=== PATIENT | male | born 1995 | race Caucasian/White ===

== ENCOUNTER 2016-12-14 13:19 | Inpatient (IN) | payer OTHER ==
[~2016-12-14] VITALS: Ht 167.6 cm; Wt 63.5 kg
[2016-12-14] VITALS (8 sets, daily range): BP systolic 107–134; BP diastolic 61–88; PULSE 80–121; RESP 16–20; TEMP 97.8–99.1; O2SAT 99–100
--- NOTE | 2016-12-14 13:19 | NUR ---
Patient to ER bed 3 to gown for evaluation. Side rails up. Report given to LILI JURADO.
--- NOTE | 2016-12-14 13:20 | NUR ---
DR. RODGERS AT BEDSIDE EXAMINING THE PT.
--- NOTE | 2016-12-14 13:22 | NUR ---
PT. PRESENTED WITH AN IV LINE TO LEFT HAND, NO INFILTRATION NOTED AT SITE
--- NOTE | 2016-12-14 13:25 | NUR ---
PT. TO THE ER BROUGHT IN BY EMS FROM [facility] STATING THAT PT. IS BED BOUND YET WAS WITNESSED ON THE GROUND HAVING A SEIZURE, WAS WITNESSED BY STAFF, SEIZURE TIME UNKNOWN, HX OF CVA, ENCEPHALOPATHY, BASE LINE ALTERED MENTAL LEVEL, TACHYCARDIAC, MARION IN PLACE, G TUBE AND VENT IN PLACE, NON AGITATED AWAKE AND ALERT AT THIS TIME
[2016-12-14] MEDS ORDERED: LORazepam 2 MG/ML VIAL (FOR ER USE) IVP ONE (13:30)
[2016-12-14 13:45] LABS: BASOPHILS # (AUTO) 0.1 K/uL (0.0-0.2); BASOPHILS % (AUTO) 0.9 % (0.0-2.0); EOSINOPHILS # (AUTO) 0.1 K/uL (0.0-0.4); EOSINOPHILS % (AUTO) 0.9 % (0.0-4.0); HEMATOCRIT 38.2 % (36-54); HEMOGLOBIN 12.4 g/dL (14.0-18.0); LYMPHOCYTES # (AUTO) 1.3 K/uL (1.0-5.5); LYMPHOCYTES % (AUTO) 8.7 % (20.5-51.5); MEAN CORPUSCULAR HEMOGLOBIN 27 pg (27-31); MEAN CORPUSCULAR HGB CONC 33 % (32-36); MEAN CORPUSCULAR VOLUME 83 fL (79.0-98.0); MONOCYTES # (AUTO) 0.7 K/uL (0.0-1.0); MONOCYTES % (AUTO) 4.5 % (1.7-9.3); NEUTROPHILS # (AUTO) 12.8 K/uL (1.8-7.7); PLATELET COUNT (AUTO) 369 K/uL (130-430); RED BLOOD CELL COUNT(AUTO) 4.62 MIL/uL (4.2-6.2); RED CELL DISTRIBUTION WIDTH 15.4 % (9.0-15.0)
[2016-12-14 13:47] LABS: CREATININE 0.6 mg/dL (0.55-1.30)
--- NOTE | 2016-12-14 13:48 | NUR ---
ekg at bedside
[2016-12-14 13:52] LABS: ALBUMIN 3.8 g/dL (3.4-4.8); TOTAL BILIRUBIN 0.4 mg/dL (0.0-1.0); TOTAL PROTEIN, SERUM 7.9 g/dL (6.4-8.3)
--- NOTE | 2016-12-14 14:09 | NUR ---
X RAY AT BEDSIDE
--- NOTE | 2016-12-14 14:32 | NUR ---
NO URINARY OUTPUT NOTED IN MD DONI NOTIFIED ORDERS RECEIVED
[2016-12-14] MEDS ORDERED: NS 500 ML IV ONE (14:45)
[2016-12-14] MEDS ORDERED: LORazepam 2 MG/ML VIAL IVP PRN ×2 (14:45→15:18)
[2016-12-14] MEDS ORDERED: levETIRAcetam 750 MG in NS 100 ML IV ONE ×2 (14:45→19:00)
[2016-12-14] MEDS ORDERED: D5LR 1,000 ML IV ONE (14:45)
--- NOTE | 2016-12-14 15:00 | NUR ---
# 16 FR Garcia catheter with use of sterile technique. NO Immediate return of urine noted. MD DR. ANA MARIA ZHANG, RECEIVED ORDERS. Bedside drainage bag placed below level of bladder. UNABLE TO COLLECT Urine sample collected and sent to lab. Pt tolerated procedure WELL Patient arrived with garcia in place, changed due to standard of practice prior to admission.
--- NOTE | 2016-12-14 15:30 | NUR ---
Patient will be admitted to care of dr. ngo. Admitted to tele unit. Will go to room 116A. Belongings list completed. Summary report printed. Report given to gee garsia.
--- NOTE | 2016-12-14 15:35 | NUR ---
Admission Note Received patient from ER with diagnosis of Seizures. Initial Plan of Care discussed-patient verbalized understanding. Patient's Susannah at bedside. Oriented to room, call light, pain management and safety.
--- NOTE | 2016-12-14 15:49 | NUR ---
received report from Ragini, came directly from ER, pt. awake, with tracheostomy tube connected to vent @ 40% FIO2 TV 500 rate 14.pt. non verbal. IV via left hand, garcia cath to OSD. pt. has a g-tube and clamped. Susannah and pt. mother here.
--- NOTE | 2016-12-14 17:30 | NUR ---
tube feed: Fibersource HN via g tube started @ 65 ml/hr., flushed prior to check for patency. IV bolus of NS still in progress. pt. pretty agitated and restless, medicated with Ativan IVP as ordered. Susannah at bedside.
--- NOTE | 2016-12-14 18:00 | NUR ---
no urine output: bladder pretty distended, no urine on the garcia bag, informed nurse Lexi.
--- NOTE | 2016-12-14 18:35 | NUR ---
bladder scan done and noted with 899 ml ., will recheck garcia cath .
--- NOTE | 2016-12-14 18:45 | NUR ---
removed the old catheter and replaced new silicone garcia cath without difficulty and obtained @ 900 cc cloudy yellow with sediments urine output. nurse Lexi leal MD here and informed.will send urine for some test ordered.
--- NOTE | 2016-12-14 18:58 | NUR ---
pt. appears more calm and not restless, noted relief noted after urine obtained. IVF, g tube and garcia intact. continue to observe. pt. on Sinus Tach. at bedside and informed about the change of shift.
--- NOTE | 2016-12-14 19:00 | NUR ---
HOARA IV: HOARA IVPB GIVEN BY BEENA COLIN RN.
[2016-12-14] MEDS ORDERED: ACETAMINOPHEN 325 MG TABLET PO PRN (19:45)
[2016-12-14 19:51] LABS: BILIRUBIN,URINE NEGATIVE (NEGATIVE); BLOOD, URINE 2+ (NEGATIVE); CLARITY/URINE HAZY (CLEAR); COLOR,URINE YELLOW (YELLOW); GLUCOSE,URINE NEGATIVE (NEGATIVE); KETONES,URINE NEGATIVE (NEGATIVE); LEUKOCYTE ESTERASE ,URINE 3+ (NEGATIVE); NITRITE, URINE NEGATIVE (NEGATIVE); PH,URINE >=9.0 (5.0-8.0); PROTEIN URINE 2+ (NEGATIVE); UROBILINOGEN,URINE 0.2 (0.2-1.0)
--- NOTE | 2016-12-14 20:00 | NUR ---
Initial PM Note Pt is resting comfortably in bed with IVF of D5LR infusing well in left hand at 100ml/hr. IV site is without any signs of infiltration. No seizure activity noted. Side rails are padded. Pt is non-verbal, but tracks with his eyes. Family members are visiting at the bedside. G tube feeding of FiberSource HN is infusing well at 65ml/hr. G tube residual is 10ml and G tube site dressing is dry and intact. Head of bed is elevated 45 degrees to prevent aspiration. Pt has Tracheostomy in place with Ventilator settings of AC 14, TV 500, FIO2 40% and Peep 5. Pt is tolerating vent settings well. Pt has Dejesus Cath in place and to gravity drainage. Urine output is cloudy yellowish and sedimented.
[2016-12-14 20:25] LABS: RBC,URINE 20-50 /HPF (0-3); WBC,URINE 20-50 /HPF (0-3)
[2016-12-14 20:26] LABS: BACTERIA,URINE FEW /HPF (None Seen); TRIPLE PHOSPHATE CRYSTAL,UR 0-10 /HPF (None Seen)
[2016-12-14] MEDS: THORAZINE (chlorproMAZINE) 25 MG TAB PO PRN (21:21)
[2016-12-14] MEDS: levETIRAcetam 500 MG TABLET GT SCH (21:21)
--- NOTE | 2016-12-14 21:21 | NUR ---
Hiccups Thorazine 25mg was given via G tube for hiccups with some relief.
--- NOTE | 2016-12-14 22:30 | NUR ---
CT Scan Pt was transported via bed to CT scan for Head CT. Pt was accompanied by two Respiratory Therapists and ACLS RN. Pt was on Vent and continuous portable cardiac monitoring during transportation. No seizure activity noted.
--- NOTE | 2016-12-14 23:00 | NUR ---
Back from CT Scan Pt arrived from CT Scan via bed. Pt was accompanied by two Respiratory Therapists and ACLS RN. Pt was on Vent and continuous portable cardiac monitoring during CT Scan and transportation back to his room. No seizure activity noted.
[2016-12-15] VITALS (19 sets, daily range): BP systolic 104–126; BP diastolic 57–75; PULSE 100–111; RESP 16–20; TEMP 97.9–99.5; O2SAT 98–100; Ht 167.6 cm; Wt 63.5 kg
--- NOTE | 2016-12-15 | NUR ---
Rounds Pt is sleeping and tolerating GT feeding and Vent settings well. No respiratory distress noted.
--- NOTE | 2016-12-15 00:53 | NUR ---
Consultation Paged Reason for consultation: RF Was consult called: Yes Person who was notified: Suzie Consulting Physician: Ashanti Holloway Econometrician Specialty: Pulmo Econometrician Reason for consultation: SZ Was consult called: Yes Person who was notified: Suzie Consulting Physician: Matthew Blanco Econometrician Specialty: Neuro Econometrician
--- NOTE | 2016-12-15 02:00 | NUR ---
Rounds Pt is sleeping without any distress noted. Fall and safety precautions are in place. Pt is tolerating GT feeding and vent settings.
--- NOTE | 2016-12-15 03:30 | NUR ---
Rounds Pt is sleeping without any resp distress noted. Fall and safety precautions are in place.
--- NOTE | 2016-12-15 05:00 | NUR ---
Rounds Pt is sleeping comfortably in bed.
[2016-12-15] MEDS: THORAZINE (chlorproMAZINE) 25 MG TAB PO PRN (06:46)
--- NOTE | 2016-12-15 06:46 | NUR ---
Hiccups Thorazine 25mg was given via G tube for hiccups with some relief.
--- NOTE | 2016-12-15 07:00 | NUR ---
Closing Note Pt is awake and resting comfortably in bed. All pt's needs were attended to. No fall or injury noted this shift. Will endorse to day shift nurse.
[2016-12-15 07:06] LABS: BASOPHILS # (AUTO) 0.1 K/uL (0.0-0.2); BASOPHILS % (AUTO) 0.9 % (0.0-2.0); EOSINOPHILS # (AUTO) 0.4 K/uL (0.0-0.4); EOSINOPHILS % (AUTO) 3.1 % (0.0-4.0); HEMATOCRIT 34.1 % (36-54); HEMOGLOBIN 11.4 g/dL (14.0-18.0); LYMPHOCYTES # (AUTO) 1.7 K/uL (1.0-5.5); LYMPHOCYTES % (AUTO) 13.1 % (20.5-51.5); MEAN CORPUSCULAR HEMOGLOBIN 28 pg (27-31); MEAN CORPUSCULAR HGB CONC 33 % (32-36); MEAN CORPUSCULAR VOLUME 83 fL (79.0-98.0); MONOCYTES % (AUTO) 7.8 % (1.7-9.3); NEUTROPHILS # (AUTO) 9.5 K/uL (1.8-7.7); NEUTROPHILS % (AUTO) 75.1 % (40.0-70.0); PLATELET COUNT (AUTO) 314 K/uL (130-430); RED BLOOD CELL COUNT(AUTO) 4.13 MIL/uL (4.2-6.2); RED CELL DISTRIBUTION WIDTH 15.4 % (9.0-15.0); WHITE BLOOD COUNT (AUTO) 12.7 K/uL (4.8-10.8)
[2016-12-15 07:22] LABS: ALBUMIN 3.2 g/dL (3.4-4.8); CALCIUM 9.1 mg/dL (8.4-11.0); CREATININE 0.57 mg/dL (0.55-1.30); POTASSIUM 3.6 mmol/L (3.5-5.1); THYROID STIMULATING HORMONE 1.36 uIu/mL (0.34-4.82); TOTAL BILIRUBIN 0.4 mg/dL (0.0-1.0); TOTAL PROTEIN, SERUM 6.8 g/dL (6.4-8.3)
--- NOTE | 2016-12-15 07:30 | NUR ---
rn notes: patient is lethargic and aphasic. afebrile latest temp is 99.4. hob elevated. vss stable. on mechanical ventilator with setting of ac 14, tv 500, FiO2 of 40% and peep of 5. lungs bilaterally slight crackles noted. abdomen soft and non distended. has g tube feeding of fibersource at 65cc/hr infusing on well. no residual noted. on low air mattress in placed. has garcia catheter draining on well. slight sediments on it. call lights within reach. safety measures maintained. bed in low position.
--- NOTE | 2016-12-15 07:34 | NUR ---
Nutrition Update Doe Scale 12 noted. Pt admitted for seizure. Diet: Fibersource HN at 65 ml/hr x20 hrs, Free Water Flush: 30cc/hr via GT BMI: 22.6 kg/m2 RD to follow per nutrition care standards.
--- NOTE | 2016-12-15 08:00 | NUR ---
suctioned at this time. still with hiccup
--- NOTE | 2016-12-15 08:35 | NUR ---
Dr Guadalupe called for orders. continous hiccup.
[2016-12-15] MEDS: levETIRAcetam 500 MG TABLET GT SCH ×2 (08:52→20:26)
--- NOTE | 2016-12-15 08:55 | NUR ---
due medication given at this time. made comfortable. hob elevated.
[2016-12-15] MEDS ORDERED: PANTOPRAZOLE SODIUM 40 MG TAB PO SCH (09:00)
[2016-12-15] MEDS ORDERED: cefTRIAXone 1 GM IVPB PREMIX 50 ML IV SCH (09:00)
--- NOTE | 2016-12-15 09:00 | NUR ---
ROCEPHIN IV ANTIBIOTIC GIVEN.
--- NOTE | 2016-12-15 09:10 | NUR ---
REPOSITIONED TO SIDES. with pillows on the back. hob elevated.
[2016-12-15] MEDS ORDERED: THORAZINE (chlorproMAZINE) 25 MG TAB PO PRN (10:00)
--- NOTE | 2016-12-15 12:12 | NUR ---
turn to sides. hob elevated. oral care done. suction at this time
--- NOTE | 2016-12-15 12:13 | NUR ---
awaiting for Dr Guadalupe for orders.
--- NOTE | 2016-12-15 14:59 | NUR ---
Discharge Planning: Pt has order to DC back to [facility]; [employer] [employer] has faxed pt's information to [facility] for review. ([phone] f.[phone]).
--- NOTE | 2016-12-15 16:16 | NUR ---
DISCHARGE PLANNING Spoke with [place]ton at [facility] patient assigned to room 31B RN to report [phone], bed available anytime. Called [facility] [phone] spoke with Maurisio arranged CCT (Trach Vent) transport pickling grader between 8-8:30pm. Placed transportation packet in nurses station. Addendum: 12/15/16 at 1644 by Purnima Casas DP Received call from [facility] RT not available for transport. Called [facility] no RT available thru the night. Called [facility] no RT available. Called [facility] [phone] spoke with Vesta who arranged CCT transport pickling grader soonest available between 10-11pm. RN made aware.
--- NOTE | 2016-12-15 17:30 | NUR ---
called the Edilma Love. regarding the possible transition care to [facility] room 31-B. its okay she said.
--- NOTE | 2016-12-15 17:51 | NUR ---
sbar report given to Tracy JURADO. [facility] [place]
--- NOTE | 2016-12-15 18:30 | NUR ---
repositioned to sides. pillows on the back. hob elevated. made comfortable.
--- NOTE | 2016-12-15 19:37 | NUR ---
sbar report given to incoming nurse Martha JURADO
--- NOTE | 2016-12-15 19:38 | NUR ---
INITIAL NOTE RECEIVED REPORT FROM CHARBEL JURADO IN SBAR FORMAT. PATIENT IN NO DISTRESS. PATIENT TRACHED ON VENT, SPO2 >95%. IVF INFUSING ORDERED. GT IN PLACE WITH FEEDING ORDERED. MARION IN PLACE DRAINING TO GRAVITY. PLAN OF CARE DISCUSSED WITH PATIENT. CALL LIGHT WITHIN REACH. SAFETY PRECAUTIONS IN PLACE. WILL CONTINUE TO MONITOR.
--- NOTE | 2016-12-15 21:00 | NUR ---
ROUNDS: PATIENT IN NO DISTRESS. FAMILY AT THE BED SIDE.
--- NOTE | 2016-12-15 22:25 | NUR ---
D/C Patient Patient discharge to [facility], report given to Tracy RN by Abimbola JURADO, day shift nurse. Patient in stable condition, ID band removed. IV catheter removed, intact and dressing applied, no active bleeding. Patient remains trached on vent with settings: AC rate of 14, FiO2 40%, TV 500, PEEP 5. Dejesus remains in place. [facility] is the transport service and Ariel is the RN assigned to ride with the patient.
== END 2016-12-15 22:20 | DRG 53 ==
LOC: SED 13:19 → STU 14:44
PROVIDERS: ADMIT Internal Medicine; ATTEND Internal Medicine
PROC: 5A1935Z Respiratory Ventilation, Less than 24 Consecutive Hours (ICD-10-PCS; principal; 2016-12-14)
DX: G40.909 Epilepsy, unspecified, not intractable, without status epilepticus (principal); J96.20 Acute and chronic respiratory failure, unspecified whether with hypoxia or hypercapnia; I62.9 Nontraumatic intracranial hemorrhage, unspecified; G93.40 Encephalopathy, unspecified; Z93.0 Tracheostomy status; R13.10 Dysphagia, unspecified; N39.0 Urinary tract infection, site not specified; Z93.1 Gastrostomy status; Z87.828 Personal history of other (healed) physical injury and trauma
CPT/HCPCS: 36415; 70450-TC; 71010; 80053; 81000-TC; 83735-TC; 84439; 84443-TC; 85025; 87081; 87086; 87186-TC; 93005; 94002; 94003; 94640; 96361; 96374; 99285; J0696; J1953; J2060; J7060; J7120; Q0161